=== PATIENT | male | born 1970 | race Caucasian/White ===

== ENCOUNTER 2020-08-23 03:43 | Emergency (ER) | payer MEDICAID, OTHER ==
[~2020-08-23] VITALS: Ht 180.3 cm; Wt 65.9 kg
[2020-08-23 04:26] VITALS: BP 122/72
[2020-08-23] MEDS ORDERED: CEPHALEXIN MONOHYDRATE 500 MG CAPSULE PO ONE (04:30)
[2020-08-23] MEDS ORDERED: SULFAMETHOX/TRIMETH DS 800-160 MG/TABLET PO ONE (04:30)
[2020-08-23] MEDS ORDERED: DiphenhydrAMINE HCL 25 MG CAPSULE PO ONE (04:30)
[2020-08-23] MEDS ORDERED: IBUPROFEN 800 MG TABLET PO ONE (04:30)
== END 2020-08-23 04:37 | disposition home or self-care (01) ==
LOC: EMS 03:44
DX: L02.512 Cutaneous abscess of left hand (principal)
CPT/HCPCS: 99284; Z7502; Z7610

== ENCOUNTER 2021-02-05 10:01 | Emergency (ER) | payer MEDICAID ==
[~2021-02-05] VITALS: Ht 180.3 cm; Wt 70.0 kg
[2021-02-05 10:39] LABS: BASOPHILS % (AUTO) 0.5 % (0.0-2.0); EOSINOPHILS % (AUTO) 0.8 % (1.0-6.0); HEMATOCRIT 42.2 % (41-53); HEMOGLOBIN 14.2 g/dL (13.5-17.5); LYMPHOCYTES # (AUTO) 1.5 K/uL (1.0-4.8); LYMPHOCYTES % (AUTO) 14.7 % (22.0-44.0); MEAN CORPUSCULAR HEMOGLOBIN 29.1 pg (26.0-34.0); MEAN CORPUSCULAR HGB CONC 33.8 G/dL (31.0-37.0); MEAN CORPUSCULAR VOLUME 86 fL (80-100); MONOCYTES # (AUTO) 0.9 K/uL (0.1-1.0); MONOCYTES % (AUTO) 8.8 % (2.0-9.0); NEUTROPHILS # (AUTO) 7.8 K/uL (1.8-7.7); NEUTROPHILS % (AUTO) 75.2 % (40.0-70.0); PLATELET COUNT (AUTO) 493 K/uL (150-450)
[2021-02-05 10:47] LABS: ANION GAP 2 mmol/L (8-16); CARBON DIOXIDE 34 mmol/L (22-29); CHLORIDE 100 mmol/L (98-107); CREATININE 0.98 mg/dL (0.60-1.30); GLOMERULAR FILTR. RATE CALC > 60 mL/min (>60); GLUCOSE,RANDOM 107 mg/dL (70-110); POTASSIUM 4.7 mmol/L (3.5-5.1); SODIUM SERUM 136 mmol/L (136-145); UREA NITROGEN, BLOOD 18 mg/dL (7-18)
[2021-02-05 10:53] LABS: ALANINE AMINOTRANSFERASE 23 U/L (12-78); ALBUMIN 3.5 g/dL (3.4-5.0); ALKALINE PHOSPHATASE 59 U/L (46-116); ASPARTATE AMINOTRANSFERASE 12 U/L (15-37); BILIRUBIN,TOTAL 0.4 mg/dL (0.1-1.0); LIPASE 57 U/L (73-393); TOTAL PROTEIN, SERUM 6.9 g/dL (6.4-8.2)
[2021-02-05] MEDS ORDERED: RINGERS SOLUTION,LACTATED 1,000 ML IV ONE (13:30)
[2021-02-05] MEDS ORDERED: FAMOTIDINE 10 MG/ML 2 ML VIAL IVP ONE (13:30)
[2021-02-05] MEDS ORDERED: MORPHINE SULFATE 4 MG/ML SYRINGE IVP ONE (13:30)
[2021-02-05] MEDS ORDERED: MAG HYDROX/AL HYDROX/SIMETH ES 30 ML SUSPENSION UDCUP PO ONE (14:00)
[2021-02-05 14:43] VITALS: BP 127/82
== END 2021-02-05 14:58 | disposition home or self-care (01) ==
LOC: EMS 10:03
DX: K27.9 Peptic ulcer, site unspecified, unspecified as acute or chronic, without hemorrhage or perforation (principal); R06.02 Shortness of breath; F17.210 Nicotine dependence, cigarettes, uncomplicated
CPT/HCPCS: 36415; 80053; 83690; 85025; 96361; 96374; 96375; 99284; J2270; J3490; J7120

== ENCOUNTER 2021-03-10 03:44 | Emergency (ER) | payer MEDICAID ==
[~2021-03-10] VITALS: Ht 182.9 cm; Wt 68.1 kg
[2021-03-10 05:13] VITALS: BP 139/86
== END 2021-03-10 07:00 | disposition left against medical advice (07) ==
LOC: EMS 03:46
DX: R10.9 Unspecified abdominal pain (principal); Z53.21 Procedure and treatment not carried out due to patient leaving prior to being seen by health care provider